=== PATIENT | female | born 1955 | race Caucasian/White ===

== ENCOUNTER 2017-10-22 03:08 | Emergency (ER) | payer OTHER ==
[2017-10-22 07:24] LABS: CHLORIDE ISTAT 88 mmol/L (98-110); POTASSIUM ISTAT 3.5 mmol/L (3.5-5.0); SODIUM ISTAT 134 mmol/L (135-145); TOT CO2 ISTAT 38 mmol/L (23-32)
[2017-10-22 07:25] LABS: AGAP ISTAT 14 mmol/L (6-14); BUN ISTAT 37 mg/dL (8-26); CREATININE ISTAT 1.1 mg/dL (0.5-1.4); GLUCOSE ISTAT 192 mg/dL (70-99); HEMATOCRIT ISTAT 40 % (36-40); HEMOGLOBIN ISTAT 13.6 g/dL (12-15); ION CA ISTAT 1.03 mmol/L (1.13-1.32)
[2017-10-23 13:54] LABS: POC GLUCOSE 180 mg/dL (70-99)
== END 2017-10-22 04:23 | disposition home or self-care (01) ==
LOC: ER 03:08
DX: R73.9 Hyperglycemia, unspecified (principal); R11.10 Vomiting, unspecified; Z88.0 Allergy status to penicillin; Z88.8 Allergy status to other drugs, medicaments and biological substances
CPT/HCPCS: 36415; 80047; 82962; 85014; 85018; 99284

== ENCOUNTER → 2018-01-28 | Outpatient (CLI) | payer OTHER ==
[2018-01-28 16:00] LABS: ANION GAP 4 (6-14); BLOOD UREA NITROGEN 18 mg/dL (7-20); CALCIUM 8.9 mg/dL (8.5-10.1); CARBON DIOXIDE 33 mmol/L (21-32); CHLORIDE 100 mmol/L (98-107); CREATININE 0.6 mg/dL (0.6-1.0); GFR 101.3; GLUCOSE 129 mg/dL (70-99); POTASSIUM 3.9 mmol/L (3.5-5.1); SODIUM 137 mmol/L (136-145)
== END | disposition home or self-care (01) ==
LOC: LAB 15:31
DX: Z13.9 Encounter for screening, unspecified (principal); I10 Essential (primary) hypertension
CPT/HCPCS: 36415; 80048